=== PATIENT | female | born 1995 | race Caucasian/White ===

== ENCOUNTER 2017-10-15 18:03 | Observation (INO) ==
[2017-10-15 18:38] LABS: Bilirubin,Urine Negative (Negative); Blood,Urine Negative (Negative); Clarity,Urine Clear (Clear); Color,Urine Yellow (Yellow); Glucose,Urine (UA) Normal (Normal); Ketones,Urine Negative (Negative); Leukocyte Esterase,Urine Small (Negative); Nitrite,Urine Negative (Negative); PH,Urine 6.5 pH Units (5.0-8.0); Protein,Urine Negative (Neg-Trace); Urobilinogen,Urine Normal (Normal)
[2017-10-15 18:39] LABS: Bacteria,Urine None Seen per hpf (None-Few); Hyaline Casts,Urine None Seen per lpf (None-Few); RBC,Urine 0-3 per hpf (0-3); Squamous Epithelial Cell,Urine Many per lpf (None-Few)
[2017-10-15 18:44] LABS: Amphetamine Screen,Urine Negative ng/mL (Cutoff=1000); Barbiturate Screen,Urine Negative ng/mL (Cutoff=200); Benzodiazepines Screen,Urine Negative ng/mL (Cutoff=200); Cannabinoid Screen,Urine Negative ng/mL (Cutoff = 50); Cocaine Screen,Urine Negative ng/mL (Cutoff= 300); Opiate Screen,Urine Negative ng/mL (Cutoff=300); Phencyclidine Screen,Urine Negative ng/mL (Cutoff=25)
--- NOTE | 2017-10-15 19:18 | OB/GYN Progress Note ---
Date of Encounter: 10/15/17 Time of Encounter: 19:08 - Assessment and Plan (1) 26 weeks gestation of Current Visit: Yes Status: Acute (2) Back pain affecting in second trimester Current Visit: Yes Status: Acute Cervix closed thick and high, UA negative, discussed back pain in with patient, etiology and ways to relieve discomfort. Discharged home with labor precautions, and went to return to triage, or notify provider. Patient verbalizes understanding Subjective - Subjective Interval history: at 26+4 weeks gestation presents to triage with complaints of lower back pain for the last 2 days, this evening and started to wrap around into her abdomen while standing at work today. Patient reports feeling occasional movement, denies vaginal bleeding, leaking of fluid, dysuria, or urinary urgency. She receives care with Dr. Sandhu. Antepartum ROS: movement normal, no loss of fluid, no vaginal bleeding, no contractions Objective - Vital Signs Vital Signs: Intake and Output 10/15/17 10/15/17 10/15/17 07:59 15:59 23:59 Other: Weight 63.3 kg Patient Weight 10/15/17 23:59 Weight 63.3 kg - Exam FHR: auscultation normal FHR comments: Appropriate for gestational age Abdomen: Present: normal appearance, soft, gravid Cervical dilation: Closed/thick/high - Labs Labs: Abnormal lab results Ur Leukocyte Esterase Small (Negative) H 10/15/17 18:25 Urine Microscopic WBC 3-5 per hpf (0-3) H 10/15/17 18:25 Ur Squamous Epith Cells Many per lpf (None-Few) H 10/15/17 18:25
== END 2017-10-15 19:19 | disposition home or self-care (01) ==
LOC: 1NENULAB
PROVIDERS: ADMIT Obstetrics & Gynecology; ATTEND Obstetrics & Gynecology

== ENCOUNTER → 2017-12-14 16:45 | Observation (INO) ==
[2017-12-14 14:19] LABS: Bilirubin,Urine Negative (Negative); Blood,Urine Negative (Negative); Color,Urine Yellow (Yellow); Glucose,Urine (UA) Normal (Normal); Ketones,Urine Negative (Negative); Leukocyte Esterase,Urine Large (Negative); Nitrite,Urine Negative (Negative); Protein,Urine Negative (Neg-Trace); Specific Gravity,Urine 1.016 (1.010-1.025); Urobilinogen,Urine Normal (Normal)
[2017-12-14 14:20] LABS: Bacteria,Urine Moderate per hpf (None-Few); Hyaline Casts,Urine Few per lpf (None-Few); Squamous Epithelial Cell,Urine Many per lpf (None-Few); WBC,Urine 50-100 per hpf (0-3)
[2017-12-14 14:21] LABS: Clarity,Urine Hazy (Clear)
[2017-12-14 14:30] LABS: Amphetamine Screen,Urine Negative ng/mL (Cutoff=1000); Barbiturate Screen,Urine Negative ng/mL (Cutoff=200); Benzodiazepines Screen,Urine Negative ng/mL (Cutoff=200); Cannabinoid Screen,Urine Negative ng/mL (Cutoff = 50); Cocaine Screen,Urine Negative ng/mL (Cutoff= 300); Opiate Screen,Urine Negative ng/mL (Cutoff=300); Phencyclidine Screen,Urine Negative ng/mL (Cutoff=25)
[2017-12-14 14:46] LABS: Basophils # 0.1 K/mcL (0.0-0.2); Basophils % 0.3 %; Eosinophils # 0.2 K/mcL (0.0-0.6); Eosinophils % 0.9 %; Hematocrit 34.1 % (35.3-44.9); Hemoglobin 11.6 g/dL (11.5-15.4); Immature Granulocytes % 1.1 % (0-4); Lymphocytes # 3.1 K/mcL (0.6-4.6); Lymphocytes % 19.4 %; Mean Corpuscular Hemoglobin 30.2 pg (28.0-33.3); Mean Corpuscular Volume 88.8 fL (83.0-100.0); Mean Platelet Volume 11.1 fL (9.4-12.4); Monocytes # 1.1 K/mcL (0.0-1.3); Monocytes % 6.7 %; Neutrophils # 11.4 K/mcL (1.6-8.9); Platelet Count 294 K/mcL (140-400); Red Blood Count 3.84 M/mcL (3.82-4.97); Red Cell Distribution Width 13.2 % (11.5-14.5); Segmented Neutrophils % 71.6 %
--- NOTE | 2017-12-14 16:25 | OB/GYN Progress Note ---
Date of Encounter: 12/14/17 Time of Encounter: 16:22 - Assessment and Plan (1) 35 weeks gestation of Current Visit: Yes Status: Acute (2) uterine contractions in third trimester, antepartum Current Visit: Yes Status: Acute No change on serial cervical exams. Pt noticed decrease in contractions after bolus. UA indicates possible UTI. Will discharge home on Macrobid, and with labor and when to return to triage precautions. POC discussed with Dr. Larson. (3) Decreased movement Current Visit: Yes Status: Acute Reactive tracing, feeling movement in triage. Qualifiers: Fetus number: single or unspecified fetus Trimester: third trimester Qualified Code(s): O36.8130 - Decreased movements, third trimester, not applicable or unspecified Subjective - Subjective Interval history: 35+1 presents to triage for labor evaluation. Pt states she has been having back pain with menstrual type cramping since last night, has intensified this afternoon.Last intercourse 2 weeks ago. Reports decreased movement, denies vaginal bleeding or leaking of fluid. Antepartum ROS: contractions, no loss of fluid, no vaginal bleeding, no movement normal Objective - Vital Signs Vital Signs: Intake and Output 12/14/17 12/14/17 12/14/17 07:59 15:59 23:59 Other: Weight 69.3 kg Patient Weight 12/14/17 23:59 Weight 69.3 kg - Exam FHR: auscultation normal Abdomen: Present: normal appearance, soft, gravid Uterus: Present: normal Cervical dilation: 1.5/80/-1 Comments: - cva tenderness - Labs Labs: Abnormal lab results WBC 16.0 K/mcL (4.3-11.1) H 12/14/17 14:40 Hct 34.1 % (35.3-44.9) L 12/14/17 14:40 Neutrophils # 11.4 K/mcL (1.6-8.9) H 12/14/17 14:40 Urine Clarity Hazy (Clear) A 12/14/17 14:06 Ur Leukocyte Esterase Large (Negative) H 12/14/17 14:06 Urine Microscopic WBC 50-100 per hpf (0-3) H 12/14/17 14:06 Ur Squamous Epith Cells Many per lpf (None-Few) H 12/14/17 14:06 Urine Bacteria Moderate per hpf (None-Few) H 12/14/17 14:06
[~2017-12-14 16:45] MED LIST: Ringers Solution, Lactated 1,000 ML IVC ONE; Ringers Solution, Lactated 1,000 ML IVC SCH
== END | disposition home or self-care (01) ==
LOC: 1NENULAB
PROVIDERS: ADMIT Advanced Practice Midwife; ATTEND Advanced Practice Midwife

== ENCOUNTER → 2018-01-03 12:52 | Observation (INO) ==
--- NOTE | 2018-01-03 12:54 | OB/GYN Progress Note ---
Date of Encounter: 01/03/18 Time of Encounter: 12:49 - Assessment and Plan (1) 38 weeks gestation of Current Visit: Yes Status: Acute 38 week gestation presents to labor and delivery triage with c/o contractions Seen by nursing staff Serial cervical exams no change Reactive NST Nitrazine negative, no vaginal leaking, normal discharge present Discharge home with labor precautions Follow up in the office with routine care and PRN (2) Non-stress test reactive Current Visit: Yes Status: Acute Reactive NST Objective - Vital Signs Vital Signs: Intake and Output 01/02/18 01/03/18 01/03/18 23:59 07:59 15:59 Other: Weight 69.7 kg Patient Weight 01/03/18 23:59 Weight 69.7 kg
[2018-01-03 15:25] LABS: Amphetamine Screen,Urine Negative ng/mL (Cutoff=1000); Barbiturate Screen,Urine Negative ng/mL (Cutoff=200); Benzodiazepines Screen,Urine Negative ng/mL (Cutoff=200); Cannabinoid Screen,Urine Negative ng/mL (Cutoff = 50); Cocaine Screen,Urine Negative ng/mL (Cutoff= 300); Opiate Screen,Urine Negative ng/mL (Cutoff=300); Phencyclidine Screen,Urine Negative ng/mL (Cutoff=25)
== END | disposition home or self-care (01) ==
LOC: 1NENULAB
PROVIDERS: ADMIT Obstetrics & Gynecology; ATTEND Obstetrics & Gynecology

== ENCOUNTER → 2018-01-06 16:25 | Observation (INO) ==
[2018-01-06 15:11] LABS: Basophils # 0.1 K/mcL (0.0-0.2); Basophils % 0.3 %; Eosinophils # 0.1 K/mcL (0.0-0.6); Eosinophils % 0.9 %; Hematocrit 37.7 % (35.3-44.9); Hemoglobin 12.8 g/dL (11.5-15.4); Immature Granulocytes % 0.9 % (0-4); Lymphocytes # 2.8 K/mcL (0.6-4.6); Lymphocytes % 18.6 %; Mean Corpuscular Hemoglobin 30.2 pg (28.0-33.3); Mean Corpuscular Volume 88.9 fL (83.0-100.0); Mean Platelet Volume 12.1 fL (9.4-12.4); Monocytes % 6.4 %; Platelet Count 284 K/mcL (140-400); Red Blood Count 4.24 M/mcL (3.82-4.97); Red Cell Distribution Width 13.8 % (11.5-14.5); Segmented Neutrophils % 72.9 %
[2018-01-06 15:21] LABS: Protein/Creatinine Ratio,Urine 0.13 mg/mg (0.00-0.20)
[2018-01-06 15:34] LABS: Amphetamine Screen,Urine Negative ng/mL (Cutoff=1000); Barbiturate Screen,Urine Negative ng/mL (Cutoff=200); Benzodiazepines Screen,Urine Negative ng/mL (Cutoff=200); Cannabinoid Screen,Urine Negative ng/mL (Cutoff = 50); Cocaine Screen,Urine Negative ng/mL (Cutoff= 300); Opiate Screen,Urine Negative ng/mL (Cutoff=300); Phencyclidine Screen,Urine Negative ng/mL (Cutoff=25)
[2018-01-06 15:38] LABS: Alanine Aminotransferase 16 Units/L (7-52); Aspartate Amino Transferase 25 Units/L (13-39); BUN/Creatinine Ratio 12 (6-26); Blood Urea Nitrogen 8 mg/dL (6-20); Lactate Dehydrogenase 185 Units/L (140-271); Uric Acid 5.4 mg/dL (2.3-7.6); eGFR For African Americans > 60 (> 60); eGFR For Non-African Americans > 60 (> 60)
--- NOTE | 2018-01-15 17:52 | OB Labor Progress Note ---
Date of Encounter: 01/06/18 Time of Encounter: 14:15 Labor Progress Note - Subjective Subjective: Pt presents from office with c/o elevated BP. No other s/sx's of PIH - Vital Signs Vital Signs: BP's WNL - Heart Tones Heart Tones: RNST - [place]: rare uc's - Interventions Interventions: PIH labs WNL with normal prot/creat ratio - Plan Plan: PIH without superimposed preeclampsia, will d/c home.
== END | disposition home or self-care (01) ==
LOC: 1NENULAB
PROVIDERS: ADMIT Obstetrics & Gynecology; ATTEND Obstetrics & Gynecology

== ENCOUNTER 2018-01-11 07:49 | Inpatient (IN) ==
[2018-01-11] MEDS ORDERED: Metoclopramide 10 MG/2 ML VIAL IVP PRN (08:11)
[2018-01-11] MEDS ORDERED: Ondansetron 4 MG/2 ML VIAL IVP PRN (08:11)
[2018-01-11] MEDS ORDERED: *HR* Nalbuphine 10 MG/ML AMPUL IVP PRN (08:11)
[2018-01-11] MEDS ORDERED: Naloxone 0.4 MG/ML INJ IVP PRN (08:11)
[2018-01-11] MEDS ORDERED: Famotidine 20 MG/2 ML VIAL IVP PRN (08:11)
[2018-01-11] MEDS ORDERED: Lidocaine 1% 20 ML MDV INFILT PRN (08:11)
[2018-01-11] MEDS ORDERED: Ringers Solution, Lactated 1,000 ML IVC SCH (08:15)
[2018-01-11] MEDS ORDERED: miSOPROStol 25 MCG TABLET PO PRN (08:15)
[2018-01-11 08:31] LABS: Basophils # 0.1 K/mcL (0.0-0.2); Basophils % 0.4 %; Eosinophils # 0.2 K/mcL (0.0-0.6); Eosinophils % 1.3 %; Hematocrit 36.2 % (35.3-44.9); Hemoglobin 12.2 g/dL (11.5-15.4); Immature Granulocytes % 1.1 % (0-4); Lymphocytes # 3.2 K/mcL (0.6-4.6); Mean Corpuscular HGB Conc 33.7 g/dL (31.6-35.5); Mean Corpuscular Hemoglobin 29.6 pg (28.0-33.3); Mean Corpuscular Volume 87.9 fL (83.0-100.0); Mean Platelet Volume 11.6 fL (9.4-12.4); Monocytes % 6.2 %; Neutrophils # 11.5 K/mcL (1.6-8.9); Platelet Count 281 K/mcL (140-400); Red Blood Count 4.12 M/mcL (3.82-4.97); Red Cell Distribution Width 13.7 % (11.5-14.5)
[2018-01-11 08:43] LABS: Amphetamine Screen,Urine Negative ng/mL (Cutoff=1000); Barbiturate Screen,Urine Negative ng/mL (Cutoff=200); Benzodiazepines Screen,Urine Negative ng/mL (Cutoff=200); Cannabinoid Screen,Urine Negative ng/mL (Cutoff = 50); Cocaine Screen,Urine Negative ng/mL (Cutoff= 300); Opiate Screen,Urine Negative ng/mL (Cutoff=300); Phencyclidine Screen,Urine Negative ng/mL (Cutoff=25); Protein/Creatinine Ratio,Urine 0.35 mg/mg (0.00-0.20)
[2018-01-11 08:49] LABS: Alanine Aminotransferase 17 Units/L (7-52); Aspartate Amino Transferase 29 Units/L (13-39); BUN/Creatinine Ratio 18 (6-26); Blood Urea Nitrogen 9 mg/dL (6-20); Glucose 108 mg/dL (70-105); Lactate Dehydrogenase 160 Units/L (140-271); Uric Acid 5.6 mg/dL (2.3-7.6); eGFR For African Americans > 60 (> 60); eGFR For Non-African Americans > 60 (> 60)
--- NOTE | 2018-01-11 08:50 | Anesthesia Evaluation PreOp ---
Date of Encounter: 01/11/18 Time of Encounter: 08:48 - Past History Planned Operation: tien Cardiac History: HTN Pulmonary History: Denies Any Significant HX PSYCHIATRIC CNS History: Denies Any Significant HX Other Medical History: Diabetes Type II (gestational, diet controlled) Anesthesia History: No Prior Anesthetic Complications, Past Anesthesia : Yes Alcohol Use: none Drug use: none Medications and Allergies Vit #108/Iron/FA [ One Tablet] 1 each PO DAILY 10/15/17 [ History] 3 Allergy/AdvReac Type Severity Reaction Status Date / Time cephalexin [From Keflex] Allergy Rash Verified 05/18/17 16:40 cinnamon Allergy Anaphylaxis Verified 10/15/17 18:25 hydrocodone [From Vicodin] Allergy Rash Verified 05/18/17 16:40 - Meds/Allergy Pre-op Review Medications Reviewed: Yes Allergies Reviewed: Yes Beta Blockers on Current Med List: No Anesthesia Results - Labs 01/11/18 08:20 Anesthesia Exam O2 Sat Height 1.6 m Weight 71.6 kg Height: 63 Weight: 157 - HEENT Pupil (Motor): Pupils equal Mallampati: II Teeth: Normal Oral Opening: Greater than 3 - PSYCHIATRIC CNS LOC: Oriented PSYCHIATRIC CNS Motor: Normal RUE, Normal LUE, Normal RLE, Normal LLE, Normal Face PSYCHIATRIC CNS Sensory: Normal: RUE, LUE, RLE, LLE, Face - Pulmonary Breath Sounds: bilateral Clear Respiratory Effort: Symmetrical Anesthesia Assess/Plan ASA Score: 2 Modified [place] Scale for Level of Consciousness: Cooperative, oriented, and tranquil Anesthetic Plan: Regional Monitoring Plan: Standard Monitors
--- NOTE | 2018-01-11 09:01 | OB/GYN History & Physical ---
Date of Encounter: 01/11/18 Time of Encounter: 09:00 Assessment and Plan (1) First in adolescent 16 years of age or older in third trimester Current visit: Yes Status: Acute (2) 39 weeks gestation of Current visit: Yes Status: Acute (3) Gestational diabetes Current visit: Yes Status: Acute Qualifiers: Gestational diabetes mellitus control: diet-controlled Trimester: third trimester Qualified Code(s): O24.410 - Gestational diabetes mellitus in , diet controlled (4) Elective induction of labor planned Current visit: Yes Status: Acute patient will be induced with cytotec 50 g by mouth plan is to anticipate vaginal delivery History of Present Illness HPI: Ms. Wisdom is a 22 year old female 1 para 0 at 39 and one sevenths weeks who was brought in for an induction of labor secondary term with favorable cervix and being an A1 gestational diabetic. Patient was sent to labor and delivery early in the week that she had elevated blood pressures but blood pressures were stable when she arrived to the labs were normal and she was discharged home. Because of her diabetics status it was recommended she be induced at 39 week range patient has been having occasional contractions but states that not that uncomfortable denies any leaking of fluid still having good movement. Patient is be positive, rubella positive, Varicella positive, GBS negative. Past Med Surg Social Fam HX - Past Medical History Source: patient, old records reviewed Medical history: other (Gestational diabetes diet controlled) Psychiatric history: no psych history - Past Surgical History Surgical History: other ([place] teeth) - Social History Smoking Status: Never smoker Smokeless Tobacco Status: No Alcohol use: none Drug use: none Occupational status: employed Current living situation: Home - Independent Activity Level: Independent ambulation Recent Out of Country Travel Within the Last 8 Weeks: No Exposure or Possible Exposure to Illness During Travel: No - Family History Mother Family Member Ethnicity: Non- Living Status: Still Living Hx Family Cardiac Disorders: Yes (HTN) Hx Family Respiratory Disorders: No Hx Family Cancer: No Hx Family GI Disorders: No Hx Family Genitourinary Disorders: No Hx Family Endocrine Disorder: No Hx Family Musculoskeletal Disorders: No Hx Family Neuromuscular Disorders: No Hx Family Neurologic Disorders: No Hx Family HEENT Disorders: No Hx Family Autoimmune Disorders: No Hx Family Reproductive Disorders: No Hx Family Psychosocial Disorders: No Hx Family Medical Disorders: No - Additional Family History Additional family history: Family history noncontributory at this time Obstetrical History - Pregnancies : 1 Para: 0 Medications and Allergies Vit #108/Iron/FA [ One Tablet] 1 each PO DAILY 10/15/17 [ History] 3 Allergy/AdvReac Type Severity Reaction Status Date / Time cephalexin [From Keflex] Allergy Rash Verified 05/18/17 16:40 cinnamon Allergy Anaphylaxis Verified 10/15/17 18:25 hydrocodone [From Vicodin] Allergy Rash Verified 05/18/17 16:40 Exam - Constitutional Constitutional: well developed, well nourished, no acute distress, average body habitus - HEENT HEENT: EOMI, PERRL, Mucus Membranes Moist - Neck Neck exam: full ROM - Lungs Respiratory exam: CTAB - Cardiovascular Cardiovascular exam: RRR - Abdomen Abdomen: Present: gravid ( heart tones 140s reactive occasional contractions seen every 2-4 minutes irregular) - Cervix Dilation: 3 Effacement: 80 Station: -1 Results Result Diagrams: 01/11/18 08:20 01/11/18 08:20 Abnormal lab results WBC 16.2 K/mcL (4.3-11.1) H 01/11/18 08:20 Neutrophils # 11.5 K/mcL (1.6-8.9) H 01/11/18 08:20 Creatinine 0.51 mg/dL (0.60-1.20) L 01/11/18 08:20 Glucose 108 mg/dL (70-105) H 01/11/18 08:20 Protein/Creatinin Ratio 0.35 mg/mg (0.00-0.20) H 01/11/18 08:20 Urine Total Protein 30 mg/dL (1-14) H 01/11/18 08:20 All other labs normal. - VTE Reasons for not Prescribing Prophylaxis: Treatment not Indicated - Low risk for VTE
--- NOTE | 2018-01-11 11:59 | OB Labor Progress Note ---
Date of Encounter: 01/11/18 Time of Encounter: 11:55 Labor Progress Note - Subjective Subjective: Patient states feeling contractions but still tolerable - Cervix Cervix: 3-4/80/0 AROM clear moderate amount - Heart Tones Heart Tones: heart tones 140s and reactive - [place]: Contractions every 2-3 minutes - Plan Plan: Continue current care if she does not make cervical change in the next 2 hrs, will augment with Pitocin
[2018-01-11] MEDS ORDERED: Oxytocin 20 units/ LR 1000 mL 20 UNIT/1,000 ML BAG IVC SCH ×2 (14:00→22:50)
[2018-01-11] MEDS ORDERED: Epidural Premix (fent/bupiv) 110 ML EP ONE (14:47)
[2018-01-11] MEDS ORDERED: Bupivacaine-MPF 0.25% 10 ML VIAL ONE (14:47)
[2018-01-11] MEDS ORDERED: *HR* FentaNYL (PF) 100 MCG/2 ML VIAL ONE (14:47)
[2018-01-11] MEDS ORDERED: EPHEDrine 50 MG/ML VIAL IVP PRN (15:14)
[2018-01-11] MEDS ORDERED: *HR* FentaNYL (PF) 100 MCG/2 ML VIAL EP ONE (15:14)
[2018-01-11] MEDS ORDERED: Bupivacaine-MPF 0.25% 10 ML VIAL EP ONE (15:14)
[2018-01-11] MEDS ORDERED: Epidural Premix (fent/bupiv) 110 ML EP SCH (15:15)
--- NOTE | 2018-01-11 15:17 | Anesthesia Procedures ---
Date of Encounter: 01/11/18 Time of Encounter: 15:15 Procedures: Anesthesia - Epidural/Spinal Patient ID/Chart reviewed: Yes Patient examined: Yes OB Eval: Gestational age: 39 OB Eval: : 1 OB Eval: Contractions: Non-stressed pattern Consent Obtained: Yes Supplemental Oxygen: None/Room Air Site Prep: Aseptic Technique, 0.5% Chlorhexidine/Alcohol Patient position: upright Local Anesthetic: Lidocaine 1% Amount of Local Anesthetic used: 3 Touhy Needle Gauge: 18 Touhy Needle Depth (cm): 5 Catheter Depth at Skin (cm): 12 Test Dose (1.5% Lido + Epi): Volume given (mls): 3 Test Dose Result: Negative Loading Dose: 0.25% Marcaine (mls): 5 Loading Dose: Fentanyl (mcg): 100 Loading Dose Administered: Thru Touhy Needle Infusion Med: 0.125% Bupivacaine w/ 2 mcg/ml Fentanyl Infusion Rate (mls/hr): [address]: Tegaderm Interspace Used: L3-L4 Loss of Resistance (KYLAH): Yes Blood: No CSF: No Paresthesia: No
--- NOTE | 2018-01-11 18:06 | OB Labor Progress Note ---
Date of Encounter: 01/11/18 Time of Encounter: 18:00 Labor Progress Note - Subjective Subjective: patient still comfortable with epidural - Cervix Cervix: complete/100/+2 - Heart Tones Heart Tones: heart tones 140s reactive - [place]: Contractions every 2 minutes - Plan Plan: We will have the patient stop pushing and plan is to anticipate vaginal delivery
--- NOTE | 2018-01-11 20:25 | OB/GYN Procedure Note ---
Delivery - Delivery Date: 01/11/18 Provider: Mike Larson Intrapartum events: none Delivery induction: misoprostol Delivery augmentation: rupture of membranes, pitocin Delivery monitor: external FHT, external uterine Anesthesia: local, epidural Estimated Blood Loss: 200 - (s) A Infant Delivery Date: 01/11/18 Infant Delivery Time: 19:26 Position: OA Route of delivery: Gender: Female Viability: Viable Pounds: 8 Ounces: 1 Weight Gram: 3.665 kg at 1 minute: 8 at 5 mins: 10 Shoulder Dystocia: not encountered Specimens collected: cord blood Placenta: spontaneous Cord: 3 umbilical vessels - Repair Episiotomy: none Laceration Description: Perineal - 2nd Degree - Complications Delivery complications: none Delivery comments: Patient is a 22-year-old 1 para 0 at 39 and one sevenths weeks who presented for induction of labor secondary to an favorable cervix and being an A1 gestational diabetic patient was 3 cm in the office and she was 3 cm on arrival. Patient's blood pressure had been elevated earlier in the week she was sent to labor and delivery for evaluation but it came down to normal. Patient did get PIH labs today and are normal but her protein creatinine ratio was 0.35 patient was given Cytotec 50 g by mouth then artificially ruptured a couple hours later. She did require Pitocin augmentation which did allow her to progress to completion. Patient pushed for approximately 30 minutes delivering a viable female infant in occiput anterior presentation at 1926 there was no nuchal cord, no meconium, infant was bulb suctioned on the abdomen. Apgars were 8 at 1 minute, 10 at 5 minutes, infant weight was 8 lbs. 1 oz. Placenta was then delivered spontaneously with three-vessel cord, lion hunter Dr. Larson, anesthesia epidural local, estimated blood loss was 200 mL. Patient had a second-degree laceration which extended off to the left side. This was repaired with a 3-0 Vicryl and 3-0 Monocryl in the usual fashion. Cervix and vagina was visualized intact. Patient tolerated the delivery well she will be observed 2 hours before being taken to the floor. All needles lap sponge counts were correct 2 - Disposition Mom disposition: stable in LDR [place] disposition: stable in LDR
[2018-01-11] MEDS ORDERED: Ibuprofen 600 MG TABLET PO PRN (22:50)
[2018-01-11] MEDS ORDERED: Measles/Mumps/Rubella Vacc 0.5 ML VIAL SQ PRN (22:50)
[2018-01-11] MEDS ORDERED: Benzocaine/Menthol 56 GM AEROSOL SPRAY TP PRN (22:50)
[2018-01-11] MEDS ORDERED: *HR* OxyCODONE/APAP 10/325 TABLET PO PRN (22:50)
[2018-01-11] MEDS ORDERED: Acetaminophen 325 MG TABLET PO PRN (22:50)
[2018-01-12] MEDS: *HR* OxyCODONE/APAP 5/325 TABLET PO PRN ×2 (05:41→12:24)
[2018-01-12 07:33] VITALS: BP 126/90
--- NOTE | 2018-01-12 08:54 | Discharge Summary ---
Date of Encounter: 01/12/18 Time of Encounter: 08:49 - Discharge Diagnosis (1) Vaginal delivery Priority: Primary Status: Acute Comments: Continue routine care discharge home today Follow up with Dr. Sandhu in 4-6 weeks (2) Second degree perineal laceration during delivery Priority: Secondary Status: Acute Comments: Continue ice packs and sitz bath pain medication prn (3) Breast feeding status of mother Priority: Secondary Status: Acute Comments: support prn - Discharge Medications Prescriptions: Ibuprofen [Motrin] 600 mg PO Q6HR PRN #60 tablet PRN Reason: Cramping OxyCODONE/APAP 5/325 [Percocet 5/325 MG] 1 each PO Q6HR PRN 3 Days #12 tablet PRN Reason: Mild To Moderate Pain Breast Pump [BREAST PUMP] 1 each .ROUTE AD #1 each Home Medications: Vit #108/Iron/FA [ One Tablet] 1 each PO DAILY 10/15/17 [ History] Benzocaine/Menthol [place] [Dermoplast [place]] 1 appl TP QID PRN aerosol 01/12/18 [Rx] Breast Pump [BREAST PUMP] 1 each .ROUTE AD #1 each 01/12/18 [Rx] Docusate [Colace] 100 mg PO BID capsule 01/12/18 [Rx] Ibuprofen [Motrin] 600 mg PO Q6HR PRN #60 tablet 01/12/18 [Rx] OxyCODONE/APAP 5/325 [Percocet 5/325 MG] 1 each PO Q6HR PRN 3 Days #12 tablet [Rx] Allergies/Adverse Reactions: 3 Allergy/AdvReac Type Severity Reaction Status Date / Time cephalexin [From Keflex] Allergy Rash Verified 05/18/17 16:40 cinnamon Allergy Anaphylaxis Verified 10/15/17 18:25 hydrocodone [From Vicodin] Allergy Rash Verified 05/18/17 16:40 Data Procedures and tests throughout hospitalization: Laboratory Tests 01/11/18 01/11/18 01/11/18 08:20 08:20 08:20 WBC 16.2 H RBC 4.12 Hgb 12.2 Hct 36.2 MCV 87.9 MCH 29.6 MCHC 33.7 RDW 13.7 Plt Count 281 MPV 11.6 Immature Gran % 1.1 Seg Neutrophils % 71.0 Lymphocytes % 20.0 Monocytes % 6.2 Eosinophils % 1.3 Basophils % 0.4 Neutrophils # 11.5 H Lymphocytes # 3.2 Monocytes # 1.0 Eosinophils # 0.2 Basophils # 0.1 BUN 9 Creatinine 0.51 L Est GFR ( Amer) > 60 Est GFR (Non-Af Amer) > 60 BUN/Creatinine Ratio 18 Glucose 108 H POC Glucose Uric Acid 5.6 AST 29 ALT 17 Lactate Dehydrogenase 160 Urine Creatinine Protein/Creatinin Ratio Urine Total Protein Urine Opiates Screen Negative Ur Barbiturates Screen Negative Ur Phencyclidine Scrn Negative Ur Amphetamines Screen Negative U Benzodiazepines Scrn Negative Urine Cocaine Screen Negative U Marijuana (THC) Screen Negative 01/11/18 01/11/18 01/11/18 08:20 12:53 17:36 WBC RBC Hgb Hct MCV MCH MCHC RDW Plt Count MPV Immature Gran % Seg Neutrophils % Lymphocytes % Monocytes % Eosinophils % Basophils % Neutrophils # Lymphocytes # Monocytes # Eosinophils # Basophils # BUN Creatinine Est GFR ( Amer) Est GFR (Non-Af Amer) BUN/Creatinine Ratio Glucose POC Glucose 94 79 Uric Acid AST ALT Lactate Dehydrogenase Urine Creatinine 86 Protein/Creatinin Ratio 0.35 H Urine Total Protein 30 H Urine Opiates Screen Ur Barbiturates Screen Ur Phencyclidine Scrn Ur Amphetamines Screen U Benzodiazepines Scrn Urine Cocaine Screen U Marijuana (THC) Screen Labs on day of discharge: Labs from last 24 hours 01/11/18 01/11/18 01/11/18 17:36 12:53 08:20 BUN 9 Creatinine 0.51 L Est GFR ( Amer) > 60 Est GFR (Non-Af Amer) > 60 BUN/Creatinine Ratio 18 Glucose 108 H POC Glucose 79 94 Uric Acid 5.6 AST 29 ALT 17 Lactate Dehydrogenase 160 Date of admission: 01/11/18 07:49 Primary care physician: Clare Hernandez CNP Consults: 01/11/18 22:50 Consult to Sales Support Associate [CONS] Routine Comment: Vaginal delivery, consult needed Discharging clinician: Rosalba Elmore Anticipated date of discharge: 01/12/18 - Patient Status Disposition: Home, Self-Care Condition: Good Functional capacity at discharge: independent ambulation - Discharge Instructions Follow Up With: Clare Hernandez CNP [Primary Care Provider] - Charlotte Sandhu DO [Partnered Physician] - - Diet and Activity Activity: increase activity as tolerated Diet: regular diet Hospital Course Reason for admission: active labor Delivery: Episiotomy: none Laceration: 2nd degree Other procedures: none complications: none Discharge diagnosis: IUP at term delivered baby: female (breast feeding) Time Attestation: Total time spent providing and/or coordinating discharge services: Time Spent: Less than 30 minutes Exam - Constitutional Vitals: Temp Pulse Resp BP Pulse Ox 97.8 F 100 16 126/90 97 01/12/18 07:31 01/12/18 07:31 01/12/18 07:31 01/12/18 07:31 01/12/18 07:31 General appearance IM: A&O X 3, pleasant, answers questions appropriately Exam: OARRS report reviewed prior to discharge per DEBORAH Chow - Respiratory Respiratory exam: Present: CTAB - Cardiovascular Cardiovascular exam IM: Present: RRR, +S1, +S2 - GI/Abdominal GI/Abdominal exam IM: normal bowel sounds - Uterine Tone: Firm Uterus Position: 1 Finger Below Umbilicus, Midline - Extremities Exam Extremities exam IM: Present: full ROM, normal capillary refill, normal inspection
[2018-01-12] MEDS ORDERED: Prenatal Vit/FA 1 EACH TABLET PO SCH ×2 (09:00)
== END 2018-01-12 21:41 | disposition home or self-care (01) | DRG 775 ==
LOC: 1NENULAB 07:49 → 1NENUOBS 22:41
PROVIDERS: ADMIT Obstetrics & Gynecology; ATTEND Obstetrics & Gynecology

== ENCOUNTER → 2020-11-11 06:21 | Observation (INO) ==
[2020-11-11 04:41] LABS: Bacteria,Urine Few per hpf (None-Few); Bilirubin,Urine Negative (Negative); Blood,Urine Negative (Negative); Budding Yeast,Urine Few per hpf (None Seen); Clarity,Urine Turbid (Clear); Color,Urine Light-Yellow (Yellow); Glucose,Urine (UA) Normal (Normal); Ketones,Urine Negative (Negative); Leukocyte Esterase,Urine Large (Negative); Nitrite,Urine Negative (Negative); Protein,Urine Negative (Neg-Trace); RBC,Urine 0-3 per hpf (0-3); Specific Gravity,Urine 1.006 (1.010-1.025); Squamous Epithelial Cell,Urine Moderate per hpf (None-Few); Urobilinogen,Urine Normal (Normal); WBC,Urine 30-50 per hpf (0-3)
[2020-11-11 05:44] LABS: Basophils % 0.3 %; Eosinophils # 0.2 K/mcL (0.0-0.6); Eosinophils % 1.1 %; Immature Granulocytes % 0.7 % (0-4); Lymphocytes # 2.5 K/mcL (0.6-4.6); Mean Corpuscular HGB Conc 33.3 g/dL (31.6-35.5); Mean Corpuscular Hemoglobin 29.9 pg (28.0-33.3); Mean Corpuscular Volume 89.7 fL (83.0-100.0); Mean Platelet Volume 10.6 fL (9.4-12.4); Monocytes # 0.9 K/mcL (0.0-1.3); Monocytes % 6.8 %; Neutrophils # 10.2 K/mcL (1.6-8.9); Platelet Count 260 K/mcL (140-400); Red Blood Count 3.68 M/mcL (3.82-4.97); Red Cell Distribution Width 13.1 % (11.5-14.5); Segmented Neutrophils % 73.1 %; White Blood Count 13.9 K/mcL (4.3-11.1)
== END | disposition home or self-care (01) ==
LOC: 1NENULAB
PROVIDERS: ADMIT Advanced Practice Midwife; ATTEND Advanced Practice Midwife

== ENCOUNTER → 2021-01-30 12:54 | Observation (INO) | END | disposition home or self-care (01) | LOC: 1NENULAB | PROVIDERS: ADMIT Student in an Organized Health Care Education/Training Program; ATTEND Student in an Organized Health Care Education/Training Program ==

== ENCOUNTER 2021-03-01 03:58 | Inpatient (IN) ==
[2021-03-01] MEDS ORDERED: Metoclopramide 10 MG/2 ML VIAL IVP PRN (03:59)
[2021-03-01] MEDS ORDERED: Naloxone 0.4 MG/ML INJ IVP PRN (03:59)
[2021-03-01] MEDS ORDERED: Famotidine 20 MG/2 ML VIAL IVP PRN (03:59)
[2021-03-01] MEDS ORDERED: Ondansetron 4 MG/2 ML VIAL IVP PRN (03:59)
[2021-03-01] MEDS ORDERED: *HR* Nalbuphine 10 MG/ML AMPUL IV PRN (03:59)
[2021-03-01] MEDS ORDERED: Lidocaine 1% 20 ML MDV INFILT PRN (03:59)
[2021-03-01] MEDS ORDERED: Oxytocin 20 units/ LR 1000 mL 20 UNIT/1,000 ML BAG IVC SCH ×2 (04:00→14:57)
[2021-03-01] MEDS ORDERED: Ringers Solution, Lactated 1,000 ML IVC SCH (04:00)
[2021-03-01 04:42] LABS: Basophils # 0.1 K/mcL (0.0-0.2); Basophils % 0.4 %; Eosinophils # 0.1 K/mcL (0.0-0.6); Eosinophils % 0.9 %; Hematocrit 33.6 % (35.3-44.9); Hemoglobin 10.9 g/dL (11.5-15.4); Immature Granulocytes % 0.6 % (0-4); Lymphocytes # 3.5 K/mcL (0.6-4.6); Lymphocytes % 25.1 %; Mean Corpuscular HGB Conc 32.4 g/dL (31.6-35.5); Mean Corpuscular Hemoglobin 28.2 pg (28.0-33.3); Mean Corpuscular Volume 86.8 fL (83.0-100.0); Mean Platelet Volume 11.6 fL (9.4-12.4); Monocytes # 1.1 K/mcL (0.0-1.3); Platelet Count 327 K/mcL (140-400); Red Blood Count 3.87 M/mcL (3.82-4.97); Red Cell Distribution Width 13.7 % (11.5-14.5); White Blood Count 13.8 K/mcL (4.3-11.1)
[2021-03-01 04:48] LABS: Amphetamine Screen,Urine Negative ng/mL (Cutoff=1000); Barbiturate Screen,Urine Negative ng/mL (Cutoff=200); Benzodiazepines Screen,Urine Negative ng/mL (Cutoff=200); Cannabinoid Screen,Urine Negative ng/mL (Cutoff = 50); Cocaine Screen,Urine Negative ng/mL (Cutoff= 300); Opiate Screen,Urine Negative ng/mL (Cutoff=300); Phencyclidine Screen,Urine Negative ng/mL (Cutoff=25)
[2021-03-01] MEDS ORDERED: EPHEDrine 50 MG/ML VIAL IVP PRN (06:29)
[2021-03-01] MEDS ORDERED: Epidural Premix (fent/bupiv) 110 ML EP SCH (06:30)
[2021-03-01] MEDS ORDERED: Lanolin 7 G OINT...G. TP PRN (14:57)
[2021-03-01] MEDS ORDERED: Oxytocin 20 units/ LR 1000 mL 20 UNIT/1,000 ML BAG IVC ONE (14:57)
[2021-03-01] MEDS ORDERED: Benzocaine/Menthol 56 GM AEROSOL SPRAY TP PRN (14:57)
[2021-03-01] MEDS: Ibuprofen 600 MG TABLET PO PRN (16:00)
[2021-03-01] MEDS: Acetaminophen 325 MG TABLET PO PRN (21:00)
[2021-03-02] MEDS: Ibuprofen 600 MG TABLET PO PRN (06:16)
[2021-03-02 06:51] VITALS: BP 117/78
[2021-03-02] MEDS ORDERED: Prenatal Vit/FA 1 EACH TABLET PO SCH (09:00)
[2021-03-02] MEDS: Acetaminophen 325 MG TABLET PO PRN (10:25)
== END 2021-03-02 14:34 | disposition home or self-care (01) | DRG 807 ==
LOC: 1NENULAB 03:58 → 1NENUOBS 14:36
PROVIDERS: ADMIT Obstetrics & Gynecology; ATTEND Obstetrics & Gynecology